=== PATIENT | female | born 1985 | race Caucasian/White ===

== ENCOUNTER 2017-07-31 13:41 | Emergency (ER) | payer MEDICAID, OTHER ==
[2017-07-31] MEDS: ACETAMINOPHEN 325 MG TAB PO (15:10)
[2017-07-31] MEDS: DIPHTH/TET/ACEL PERTUSS (ADULT) 0.5 ML VIAL IM* (15:11)
== END 2017-07-31 15:54 | disposition home or self-care (01) ==
LOC: FTE 13:41
DX: S80.11XA Contusion of right lower leg, initial encounter (principal); W54.0XXA Bitten by dog, initial encounter; Y92.9 Unspecified place or not applicable; Z23 Encounter for immunization
CPT/HCPCS: 90471; 90715; 99283-25